=== PATIENT | male | born 1940 | race Caucasian/White ===

== ENCOUNTER 2023-12-05 08:47 | Emergency (ER) | payer MEDICARE, BC ==
[~2023-12-05] VITALS: Ht 177.8 cm; Wt 84.7 kg
[2023-12-05 08:55] VITALS: BP 142/91
[2023-12-05 09:00] VITALS: BP 125/68
[2023-12-05] MEDS ORDERED: cefTRIAXone SODIUM 2 GM in SODIUM CHLORIDE 0.9% 100 ML IV ONE (09:00)
[2023-12-05] MEDS ORDERED: SULFAMETHOXAZOLE W/TRIMETHOPRI 1 COMBO TAB PO ONE (09:00)
[2023-12-05] MEDS ORDERED: LIDOcaine HCl 1% (Local Anesth.) 20 ML VIAL IM STA (09:01)
[2023-12-05] MEDS ORDERED: CEPHALEXIN500 M1 PO (09:01)
[2023-12-05] MEDS ORDERED: BACTRIM DS1 TAB PO (09:01)
[2023-12-05] MEDS ORDERED: cefTRIAXone SODIUM 2 GM/VIAL SDV IM ONE (09:05)
[2023-12-05 09:38] VITALS: BP 125/68
== END 2023-12-05 09:39 | disposition home or self-care (01) ==
LOC: ED 08:47
DX: L03.012 Cellulitis of left finger (principal)